=== PATIENT | female | born 1990 | race Hispanic/Latino ===

== ENCOUNTER 2025-03-07 15:00 | Emergency (ER) | payer OTHER ==
[~2025-03-07] VITALS: Ht 149.9 cm; Wt 79.4 kg
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
[2025-03-07 15:28] VITALS: BP 147/81; PULSE 112; RESP 20; TEMP 97.6; O2SAT 97
[2025-03-07] MEDS ORDERED: IBUP-2077 PO (16:56)
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
== END 2025-03-07 17:18 | disposition home or self-care (01) ==
LOC: EDH 15:00
DX: S40.011A Contusion of right shoulder, initial encounter (principal); S20.211A Contusion of right front wall of thorax, initial encounter; V89.2XXA Person injured in unspecified motor-vehicle accident, traffic, initial encounter; Y93.89 Activity, other specified; Y92.89 Other specified places as the place of occurrence of the external cause; Y99.8 Other external cause status
CPT/HCPCS: 36415; 71101; 73030; 84703; 99284